=== PATIENT | male | born 1980 ===

== ENCOUNTER 2018-05-16 08:15 | Outpatient (RCR) | payer OTHER ==
--- NOTE | 2018-04-07 18:10 | PT INITIAL EVALUATION ---
MEDICAL DIAGNOSIS: Left shoulder rotator cuff strain TREATMENT DIAGNOSIS: same DATE OF ONSET: 03/21/18 SUBJECTIVE: Adebayo Beard presents to physical therapy with complaints of L shoulder pain that started approximately 2.5 to 2 weeks ago. He reports that the pain started after lifting, holding, and trying to thread a shell weighing approximately 30-40 pounds. He reports that the pain is worse with holding his shoulder in horizontal abduction, playing soccer, and lifting anything over 30-40#. He reports that the pain is better with rest. Furthermore , he reports that the pain comes quickly following an aggravating activity and then it abolishes quickly. He rates his pain that comes and goes approximately 4-5/10 and if he does something that aggravates more than normal he rates it to be 6/10. He describes the pain to be achy and sharp. Pain location is anterior and lateral shoulder. 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 If anything he might has B rounded shoulders and forward head; however, it is correctable if cued to do so. ROM: L shoulder PROM and AAROM: flexion, abduction, extension, scaption, IR, and ER: Full with painful end feels with flexion, abduction, scaption, and ER. L shoulder AROM: flexion, abduction, scaption, ER: Full with painful end feels. L shoulder AROM: IR and extension: full with muscular end feels Strength: L shoulder: flexion: strong and painful, extension: 5/5 with no pain, abduction: strong and painful, scaption: strong and painful, ER: strong and painful, IR: 5/5 without any pain. Palpation: TTP: over bicipital groove, insertional points of supraspinatus, teres minor, and infraspinatus. Sensation: Intact C4-T1 Special Tests: (+) speeds test, neers test, yocums test, odom-eric, open can. (-) full RTC tear Mobility: Independent Gait: He demonstrated excellent scapulohumeral rhythm ASSESSMENT: Adebayo will benefit from skilled physical therapy addressing the listed impairments listed above to improve function and QOL. His signs and symptoms are consistent with L RTC strain that demonstrated directional preference with repeated horizontal adduction. Short Term Goals 3 weeks: Pt will demonstrate full PROM-AROM with normal end feels to improve function and QOL. 6 weeks: Pt will demonstrate L shoulder RTC and periscapular strength from baseline to 4+/5 or greater without any L shoulder pain to improve function and QOL. 8 weeks: Pt will demonstrate abolished L shoulder pain with functional work related activities such has holding and lifting 30-40# objects to improve function and return to work without any L shoulder pain. Patient's Goals get back to work without any pain in his L shoulder PLAN: Patient to be seen for Manual Therapy/STM/MET Strengthening/condition Ice/Heat Range of Motion Spinal Stabilization Work Hardening/Cond Stretching Iontophoresis Neuromuscular Re-ed Closed Chain Program Electrical Stim Posture/Body mechanics Home Exercise Program Therapeutic Activities 2-3x/week for 2 Months If you have any questions, comments, or concerns about this report or plan, please contact me at . Thank you, Basilio Lima, PT, DPT MAYELIN
[~2018-05-16 08:15] MED LIST: CYCL10TA29 PO; HYDR-4309 PO; IBUP800T37 PO; LEVO75TA73 PO
--- NOTE | 2018-06-15 16:19 | PT PLAN OF CARE ---
Physician: Chilo Ulrich MD Patient is being seen: 2x/week Therapist: Basilio Lima, PT, DPT Medical Diagnosis: Left shoulder rotator cuff strain Treatment Diagnosis: same Date of Onset: 03/21/18 Date of Initial Evaluation: 04/06/18 Date patient was last seen: 05/30/18 Number of treatments: 7 Number of cancellations/No shows: 1 INTERVENTIONS: Manual Therapy/STM/MET Strengthening/condition Ice/Heat Range of Motion Spinal Stabilization Work Hardening/Cond Stretching Iontophoresis Neuromuscular Re-ed Closed Chain Program Electrical Stim Posture/Body mechanics Home Exercise Program Therapeutic Activities GOALS: 3 weeks: Pt will demonstrate full PROM-AROM with normal end feels to improve function and QOL. MET 6 weeks: Pt will demonstrate L shoulder RTC and periscapular strength from baseline to 4+/5 or greater without any L shoulder pain to improve function and QOL. MET 8 weeks: Pt will demonstrate abolished L shoulder pain with functional work related activities such has holding and lifting 30-40# objects to improve function and return to work without any L shoulder pain. MET PATIENT'S GOAL: get back to work without any pain in his L shoulder Status of Patient's Goals: MET Patient Compliance: Good Prognosis: Excellent Reasons for continuing therapy: This is a discharge note for Adebayo Beard. He reports that he is doing well. He denies any pain or discomfort over the last week. He reports that he was able to return to soccer and work without any discomfort. He demonstrated full L shoulder AROM in all directions with normal end feels prior to the session and following the session. He demonstrated significant improvements in RTC and periscapular strength without any pain. Posture: He demonstrates normal posture mechanics. If anything he might has B rounded shoulders and forward head; however, it is correctable if cued to do so. ROM: L shoulder PROM and AAROM: flexion, abduction, extension, scaption, IR, and ER: Full with normal end feels with flexion, abduction, scaption, and ER. L shoulder AROM: flexion, abduction, scaption, ER: Full with normal end feels. L shoulder AROM: IR and extension: full with muscular end feels Strength: L shoulder: flexion: 5/5 with no pain, extension: 5/5 with no pain, abduction: 5/5 with no pain, scaption: 5/5 with no pain, ER: 5/5 with no pain, IR: 5/5 without any pain. Special Tests: (-) speeds test, neers test, yocums test, odom-eric, open can. (-) full RTC tear Mobility: Independent If you have any questions, please contact me at [phone]. Thank you, Basilio Lima, PT, DPT RIOSD
== END 2018-07-05 ==
LOC: PT 08:15
PROVIDERS: ATTEND Orthopaedic Surgery
DX: S46.012A Strain of muscle(s) and tendon(s) of the rotator cuff of left shoulder, initial encounter (principal); X50.0XXA Overexertion from strenuous movement or load, initial encounter
CPT/HCPCS: 97161

== ENCOUNTER → 2018-05-27 | Outpatient (CLI) | payer OTHER ==
--- NOTE | 2018-05-27 13:37 | RADIOLOGY IMAGING REPORT ---
FACILITY: [facility] PATIENT NAME: Adebayo Beard : 1980 MR: [id number] V: [id number] EXAM DATE: ORDERING PHYSICIAN: SYDNEY BOLTON TECHNOLOGIST: Location: [facility] [place] Patient: Adebayo Beard : 1980 Visit/Account:[id number] Date of Sevice: 05/27/2018 THYROID HISTORY: Hypothyroidism COMPARISON: None. FINDINGS: Thyroid size: Normal. Right lobe: 4.7 x 1.6 x 1.5 cm Left lobe: 4.0 x 1.3 x 1.6 cm Isthmus: One mm Thyroid nodules: Right lobe: None discrete. Left lobe: None discrete. Isthmus: None discrete. Thyroid vascularity: Thyroid vascularity is normal. IMPRESSION: Normal thyroid ultrasound Report Dictated By: Martir Byrd MD at 05/27/2018 1:32 PM Report E-Signed By: Martir Byrd MD at 05/27/2018 1:34 PM WSN:[id number]
== END ==
LOC: US 02:25
PROVIDERS: ATTEND Family Medicine
DX: E03.9 Hypothyroidism, unspecified (principal)
CPT/HCPCS: 76536

== ENCOUNTER → 2018-05-31 | Outpatient (CLI) | payer OTHER ==
--- NOTE | 2018-05-31 13:22 | RADIOLOGY IMAGING REPORT ---
FACILITY: [facility] [place] PATIENT NAME: Adebayo Beard : 1980 MR: [id number] V: [id number] EXAM DATE: ORDERING PHYSICIAN: SYDNEY BOLTON TECHNOLOGIST: [place] [facility] [place] Adebayo Beard : 1980 Visit/Account:[id number] Date of Sevice: 05/31/2018 Chest with lateral, two views, and left rib detail, two views. HISTORY: Struck with soccer ball, left rib pain, shortness of breath. COMPARISON: 06/26/2015. The heart and mediastinum are unremarkable. Pulmonary vessels are unremarkable. The lungs are clear . The pleural surfaces are unremarkable. No pneumothorax. A metal marking BB projects on the lateral left chest. The left ribs are unremarkable. IMPRESSION: No evidence of acute cardiopulmonary disease. Negative left ribs. Report Dictated By: Gary Lee MD at 05/31/2018 1:17 PM Report E-Signed By: Gary Lee MD at 05/31/2018 1:19 PM WSN:JOSE RAMON
--- NOTE | 2018-05-31 13:23 | RADIOLOGY IMAGING REPORT ---
[place] [facility] [place] NAME: Adebayo Beard : 1980 MR: [id number] V: [id number] EXAM DATE: ORDERING PHYSICIAN: SYDNEY BOLTON TECHNOLOGIST: Location: [facility] Patient: Adebayo Beard : 1980 Visit/Account:[id number] Date of Sevice: 05/31/2018 Chest with lateral, two views, and left rib detail, two views. HISTORY: Struck with soccer ball, left rib pain, shortness of breath. COMPARISON: 06/26/2015. The heart and mediastinum are unremarkable. Pulmonary vessels are unremarkable. The lungs are clear . The pleural surfaces are unremarkable. No pneumothorax. A metal marking BB projects on the lateral left chest. The left ribs are unremarkable. IMPRESSION: No evidence of acute cardiopulmonary disease. Negative left ribs. Report Dictated By: Gary Lee MD at 05/31/2018 1:17 PM Report E-Signed By: Gary Lee MD at 05/31/2018 1:19 PM WSN:JOSE RAMON
== END ==
LOC: RAD 12:38
PROVIDERS: ATTEND Family Medicine
DX: R06.02 Shortness of breath (principal); R07.81 Pleurodynia
CPT/HCPCS: 71046; 71100

== ENCOUNTER → 2018-09-01 | Outpatient (CLI) | payer OTHER ==
[~2018-09-01] MED LIST changes: +FLUT16SP19; -HYDR-4309 PO; +HYDR-653 PO; +LEVO-3 PO
--- NOTE | 2018-09-01 12:10 | RADIOLOGY IMAGING REPORT ---
FACILITY: [facility] - [place] PATIENT NAME: Adebayo Beard : 1980 MR: [id number] V: [id number] EXAM DATE: ORDERING PHYSICIAN: HANNAH GRANADO TECHNOLOGIST: Location: [facility] Patient: Adebayo Beard : 1980 Visit/Account:[id number] Date of Sevice: 09/01/2018 Examination: Abdomen single view HISTORY: Renal stones. FINDINGS: Single frontal view of the abdomen is submitted. Intestinal bowel gas pattern is normal. No calcifica tions overlie the renal contours which are partially obscured by overlying stool and bowel gas. Vascu lar phleboliths are seen within the pelvis. There is a slight dextrocurvature centered in the mid lum bar spine which may simply reflect patient positioning. IMPRESSION: 1. No radiographically apparent renal stones. 2. Normal bowel gas pattern. Report Dictated By: Trenton Knight at 09/01/2018 11:52 AM Report E-Signed By: Trenton Knight at 09/01/2018 12:07 PM WSN:[id number]
== END ==
LOC: RAD 10:03
PROVIDERS: ATTEND Urology
DX: Z12.5 Encounter for screening for malignant neoplasm of prostate (principal)
CPT/HCPCS: 74018; 84153